=== PATIENT | male | born 1985 | race Caucasian/White ===

== ENCOUNTER 2018-01-12 15:33 | Emergency (ER) | payer OTHER ==
[~2018-01-12] VITALS: Ht 182.9 cm; Wt 88.5 kg
[~2018-01-12 15:33] MED LIST: AUGMENTIN 875-1 EACH PO; GUAIFEN-CODEIN118 M1 PO; IBUPROFEN400 M1 PO; KETOROLAC TROME10 M1 PO; NAPROSYN500 M1 PO
[2018-01-12 15:39] VITALS: BP 124/81
== END 2018-01-12 16:41 | disposition admitted as inpatient to this hospital (09) ==
LOC: ERH 15:33
DX: R53.1 Weakness (principal); R05 Cough; R11.11 Vomiting without nausea
CPT/HCPCS: 87804; 87804-59; 99281